=== PATIENT | female | born 1980 | race African-American/Black ===

== ENCOUNTER 2016-12-03 11:32 | Emergency (ER) | payer MEDICARE, OTHER ==
[~2016-12-03] VITALS: Ht 160 cm; Wt 114.1 kg
[2016-12-03 11:36] VITALS: Ht 160 cm; Wt 114.1 kg
[2016-12-03 13:16] LABS: ADD UMIC YES; URINE BILIRUBIN (Dip) NEGATIVE (NEGATIVE); URINE BLOOD (Dip) 2+ (NEGATIVE); URINE COLOR LT. YELLOW (YELLOW); URINE GLUCOSE (Dip) NEGATIVE (NEGATIVE); URINE KETONES (Dip) NEGATIVE (NEGATIVE); URINE LEUKOCYTE ESTERASE (Dip) 3+ (NEGATIVE); URINE NITRITE (Dip) NEGATIVE (NEGATIVE); URINE TOTAL PROTEIN (Dip) TRACE (NEGATIVE); URINE UROBILINOGEN (Dip) 0.2 E.U./dL (0.1-1.0)
[2016-12-03 13:23] LABS: POTASSIUM 4.6 mmol/L (3.5-5.1)
[2016-12-03 13:25] LABS: CREATININE 3.22 mg/dl (0.44-1.00)
[2016-12-03 13:26] LABS: CALCIUM 9.4 mg/dl (8.4-10.2); CHOL/HDL RATIO 3.6 RATIO; PHOSPHORUS 4.4 mg/dl (2.5-4.9)
[2016-12-03] MEDS ORDERED: HEPARIN (100 UNITS/ML) 5 ML SYG CATHETER ONE (13:30)
[2016-12-03 13:48] VITALS: BP 132/85; PULSE 77; RESP 18; TEMP 98.1
--- NOTE | 2016-12-03 13:49 | ERD ---
ER Documentation Chief Complaint Date/Time DATE: 12/03/16 TIME: 13:47 Chief Complaint here for lab work up, has port cath, lab unable to draw HPI This is a 36-year-old female presents to the ER for lab work. Patient has a port catheter was unable to get her lab work done at the lab. Patient is asymptomatic otherwise has a past medical history of MS, diabetes, renal failure. He denies any chest pain or shortness of breath ROS 12 point review of systems was done, all negative except per HPI. Medications Home Meds Reported Medications Benazepril Hcl* (Benazepril Hcl*) 20 Mg Tablet, 20 MG PO BID, #60 TAB 09/23/16 Citalopram Hydrobromide* (Celexa*) 10 Mg Tablet, 10 MG PO DAILY, #30 TAB 09/23/16 Furosemide* (Furosemide*) 80 Mg Tablet, 60 MG PO BID, #60 TAB 09/23/16 Ergocalciferol (Vitamin D2) (VITAMIN D2) 50,000 Unit Capsule, 70903 UNIT PO, CAP 09/23/16 Acetaminophen* (Acetaminophen*) 500 MG Extra Strength Tablet, 500 MG PO Q4H Y for PAIN AND OR ELEVATED TEMP, TAB 09/23/16 Trazodone Hcl* (Trazodone Hcl*) 50 Mg Tablet, 50 MG PO QHS, #30 TAB 09/23/16 Alprazolam* (Xanax*) 0.5 Mg Tab, 0.5 MG PO Q6 Y for ANXIETY, TAB 04/02/15 Calcitriol* (Rocaltrol*) 0.25 Mcg Capsule, 0.25 MCG PO DAILY, CAP 04/02/15 Citalopram Hydrobromide* (Celexa*) 20 Mg Tablet, 20 MG PO DAILY, TAB 04/02/15 Insulin Aspart* (Novolog Insulin Vial*) 100 U/Ml Vial, 10-15 SC SLIDING SCALE AC , VIAL 04/02/15 Insulin Glargine* (Lantus*) 100 Unit/Ml Soln, 30 UNIT SC DAILY 03/22/14 Atorvastatin (Lipitor) 20 Mg Tablet, 20 MG PO HS 03/26/12 Amlodipine Besylate* (Amlodipine Besylate*) 5 Mg Tablet, 5 MG PO BID 03/26/12 Allergies Allergies: Coded Allergies: peanut (Verified Allergy, Severe, 12/03/16) avocado (Verified Allergy, Unknown, 12/03/16) PMhx/Soc History of Surgery: Yes (CHOLECYSTECTOMY,AVF PLACEMENT LA,C SECTION X1) Anesthesia Reaction: No Hx Neurological Disorder: No Hx Respiratory Disorders: No Hx Cardiac Disorders: No Hx Psychiatric Problems: No Hx Miscellaneous Medical Probl: No Hx Alcohol Use: No Hx Substance Use: No Hx Tobacco Use: No Smoking Status: Never smoker Physical Exam Vitals Vital Signs Date Time Temp Pulse Resp B/P Pulse Ox O2 Delivery O2 Flow Rate FiO2 12/03/16 11:36 98.1 97 20 133/82 99 Physical Exam Const: [] Head: Atraumatic Eyes: Normal Conjunctiva Resp: Clear to auscultation bilaterally Cardio: Regular rate and rhythm, no murmurs Ext: Patient has a brace on her left leg and walks with a limp. Neur: Awake and alert Psych: Normal Mood and Affect Result Diagram: 12/03/16 1300 12/03/16 1300 Results 24 hrs Laboratory Tests Test 12/03/16 13:00 Anion Gap 22 Blood Urea Nitrogen 48mg/dl Calcium Level 9.4mg/dl Carbon Dioxide Level 20mmol/L Chloride Level 104mmol/L Cholesterol Level 114mg/dl Cholesterol/HDL Ratio 3.6RATIO Creatinine 3.22mg/dl Glucose Level 68mg/dl HDL Cholesterol 31mg/dl Hemoglobin 8.9g/dl LDL Cholesterol, Calculated 65mg/dl Parathyroid Hormone (Intact) pg/ml Phosphorus Level 4.4mg/dl Potassium Level 4.6mmol/L Sodium Level 141mmol/L Triglycerides Level 91mg/dl Urine Bilirubin NEGATIVE Urine Clarity CLOUDY Urine Color LT. YELLOW Urine Glucose NEGATIVE% Urine Hemoglobin 2+ Urine Ketones NEGATIVE Urine Leukocyte Esterase 3+ Urine Microscopic RBC Pending Urine Microscopic WBC Pending Urine Nitrite NEGATIVE Urine Specific [place] 1.015 Urine Total Protein TRACE Urine Urobilinogen 0.2 E.U./dL Urine pH 5.5 Current Medications Medications (Trade) Dose Ordered Sig/Raquel Route PRN Reason Start Time Stop Time Status Last Admin Dose Admin Heparin Sodium (Porcine) (Heparin Flush (10 Units/ml)) 30 unit ONCE ONCE CATHETER 12/03/16 13:00 12/03/16 13:14 DC Heparin Sodium (Porcine) (Heparin Flush (100 Units/ml)) 500 unit ONCE ONCE CATHETER 12/03/16 13:30 12/03/16 13:31 DC 12/03/16 13:25 Procedures/MDM This is a 36-year-old female presents to the ER for a lab draw. Labs were drawn here in the ER by our nurses. There was no complications. Patient is to follow-up with her primary care doctor within 1-2 days return to ER sooner if symptoms worsen. My medical decision making shared with the patient she understands and agrees with plan Departure Diagnosis: Primary Impression: Encounter for laboratory test Condition: Stable Patient Instructions: Chronic Kidney Disease Additional Instructions: Call your primary care doctor TOMORROW for an appointment during the next 1-2 days.See the doctor sooner or return here if your condition worsens before your appointment time. ALEC NYE Dec 03, 2016 13:49
[2016-12-03 13:51] LABS: BACTERIA,URINE MANY
== END 2016-12-03 13:49 | disposition home or self-care (01) ==
LOC: FTE 11:32
DX: Z00.00 Encounter for general adult medical examination without abnormal findings (principal); E11.9 Type 2 diabetes mellitus without complications; Z79.4 Long term (current) use of insulin; Z91.010 Allergy to peanuts
CPT/HCPCS: 80048; 80061; 81001; 81003; 83036; 83970; 84100; 84155; 85018; 99283; J1642

== ENCOUNTER → 2016-12-03 | Outpatient (CLI) | payer MEDICARE, OTHER ==
[~2016-12-03] MED LIST: ACET-141 PO; ALPR0.5T PO; AMLO-145 PO; ATOR20TA17 PO; BENA20TA48 PO; CALC0.255 PO; CITA10TA72 PO; CITA20TA11 PO; ERGO500037 PO; FURO80TA3 PO; LANT3I SC; NOV SC; TRAZ50TA18 PO
== END | disposition home or self-care (01) ==
LOC: LAB 10:54
PROVIDERS: ATTEND Internal Medicine Nephrology
DX: I12.9 Hypertensive chronic kidney disease with stage 1 through stage 4 chronic kidney disease, or unspecified chronic kidney disease (principal); N18.4 Chronic kidney disease, stage 4 (severe); R80.9 Proteinuria, unspecified; D63.1 Anemia in chronic kidney disease

== ENCOUNTER 2017-01-29 11:19 | Emergency (ER) | payer MEDICARE, OTHER ==
[~2017-01-29] VITALS: Wt 111.6 kg
[2017-01-29] MEDS ORDERED: ONDANSETRON 4 MG INJ IV STA (11:47)
[2017-01-29] MEDS ORDERED: FURO-110 PO (12:10)
[2017-01-29 13:13] LABS: ADD SCAN DIFF NO
[2017-01-29 13:17] LABS: BASOPHIL # 0.1 10^3/ul (0.0-0.1); BASOPHILS % 0.6 % (0.0-2.0); EOSINOPHILS # 0.6 10^3/ul (0.0-0.5); EOSINOPHILS % 6.6 % (0.0-7.0); HEMATOCRIT 25.1 % (37.0-47.0); HEMOGLOBIN 8.5 g/dl (12.0-16.0); LYMPHOCYTES # 2.8 10^3/ul (0.8-2.9); LYMPHOCYTES % 31.5 % (15.0-51.0); MEAN CORPUSCULAR HEMOGLOBIN 25.4 pg (29.0-33.0); MEAN CORPUSCULAR HGB CONC 33.9 g/dl (32.0-37.0); MEAN CORPUSCULAR VOLUME 74.9 fl (82.0-101.0); MEAN PLATELET VOLUME 9.4 fl (7.4-10.4); MONOCYTE # 0.8 10^3/ul (0.3-0.9); MONOCYTES % 9.1 % (0.0-11.0); NEUTROPHIL # 4.6 10^3/ul (1.6-7.5); PLATELET COUNT 340 10^3/UL (140-415); RED BLOOD COUNT 3.35 10^6/ul (4.20-5.40); RED CELL DISTRIBUTION WIDTH 14.2 % (11.5-14.5); WHITE BLOOD COUNT 8.9 10^3/ul (4.8-10.8)
--- NOTE | 2017-01-29 13:25 | RADRPT ---
PROCEDURE: XR Chest. CLINICAL INDICATION: Chest pain, abdominal pain TECHNIQUE: AP view of the chest was performed. COMPARISON: April 02, 2015 FINDINGS: The cardiomediastinal silhouette is within normal limits. There is a new, right Perma-Cath in place. The lungs are clear. No signs of pleural fluid or pneumothorax are seen. No acute infiltrate or fin dings of fluid overload. The osseous structures and soft tissues are unremarkable. IMPRESSION: No evidence for active cardiopulmonary disease. Right Perma-Cath. No acute infiltrate or findings of fluid overload. Overall, no interval change. RPTAT: QQ .Norma Ortez MD, MD Date Time Electronically viewed and signed by .Norma Ortez MD, MD on 01/29/2017 13:25 .F/
[2017-01-29 14:08] LABS: ADD UMIC YES; URINE BILIRUBIN (Dip) NEGATIVE (NEGATIVE); URINE BLOOD (Dip) 3+ (NEGATIVE); URINE COLOR LT. YELLOW (YELLOW); URINE GLUCOSE (Dip) NEGATIVE (NEGATIVE); URINE KETONES (Dip) NEGATIVE (NEGATIVE); URINE LEUKOCYTE ESTERASE (Dip) 3+ (NEGATIVE); URINE NITRITE (Dip) NEGATIVE (NEGATIVE); URINE TOTAL PROTEIN (Dip) 1+ (NEGATIVE); URINE UROBILINOGEN (Dip) 0.2 E.U./dL (0.1-1.0)
[2017-01-29 14:27] LABS: BACTERIA,URINE MANY; SQUAMOUS EPITHELIAL CELL,UR FEW
[2017-01-29 14:31] LABS: ALBUMIN 3.8 g/dl (3.3-4.9); CHLORIDE 103 mmol/L (97-110); POTASSIUM 5.3 mmol/L (3.5-5.1); SODIUM 138 mmol/L (135-144)
[2017-01-29 14:34] LABS: ALANINE AMINOTRANSFERASE 32 IU/L (13-69); ALBUMIN/GLOBULIN RATIO 1.31; ALKALINE PHOSPHATASE 100 IU/L (42-121); ANION GAP 17 (8-16); ASPARTATE AMINO TRANSFERASE 25 IU/L (15-46); BLOOD UREA NITROGEN 49 mg/dl (7-20); CARBON DIOXIDE 23 mmol/L (21-31); CREATININE 4.03 mg/dl (0.44-1.00); TOTAL PROTEIN 6.7 g/dl (6.1-8.1)
[2017-01-29 14:35] LABS: CALCIUM 8.7 mg/dl (8.4-10.2)
[2017-01-29 14:37] LABS: GLUCOSE 41 mg/dl (70-220)
[2017-01-29 14:43] LABS: B-TYPE NATRIURETIC PEPTIDE 286 PG/ML (0-125)
[2017-01-29 14:49] LABS: TROPONIN-I < 0.012 ng/ml (0.00-0.12)
[2017-01-29] MEDS ORDERED: FUROSEMIDE 40 MG INJ IV ONE (15:30)
[2017-01-29] MEDS ORDERED: CEFEPIME 1GM/50 ML (PMX) 50 ML IVPB ONE (15:30)
[2017-01-29] MEDS ORDERED: NA POLYST SULFON 15 GM/60 ML BTL PO ONE (15:30)
[2017-01-29] MEDS ORDERED: LEVO250T9 PO (16:01)
[2017-01-29 16:12] VITALS: BP 131/92; PULSE 104; RESP 22
--- NOTE | 2017-01-29 16:13 | ERD ---
ER Documentation Chief Complaint Date/Time DATE: 01/29/17 TIME: 16:03 Chief Complaint FEW WKS OF SOB WITH MILD ANASARCA PER CAREGIVER. INT COUGH AND CONGESTION HPI This 36-year-old female presents to the ER with feeling generally slightly weak and tired than usual. She had very mild shortness of breath. She herself to not intended come to the hospital when her home health nurse stopped by she thought that she looked a little more swollen than usual. Patient does say that she has increasing bilateral leg swelling. She has a history of renal insufficiency but is not on dialysis currently she has been about in the past. ROS All systems reviewed and are negative except as per history of present illness. Medications Home Meds Active Scripts Levofloxacin* (Levofloxacin*) 250 Mg Tablet, 250 MG PO DAILY, #4 TAB Prov:LUISSUZYHO DO 01/29/17 Reported Medications Furosemide* (Lasix*) 20 Mg Tablet, 60 MG PO BID, TAB 01/29/17 Benazepril Hcl* (Benazepril Hcl*) 20 Mg Tablet, 20 MG PO BID, #60 TAB 09/23/16 Citalopram Hydrobromide* (Celexa*) 10 Mg Tablet, 10 MG PO DAILY, #30 TAB 09/23/16 Ergocalciferol (Vitamin D2) (VITAMIN D2) 50,000 Unit Capsule, 50065 UNIT PO, CAP 09/23/16 Acetaminophen* (Acetaminophen*) 500 MG Extra Strength Tablet, 500 MG PO Q4H Y for PAIN AND OR ELEVATED TEMP, TAB 09/23/16 Trazodone Hcl* (Trazodone Hcl*) 50 Mg Tablet, 50 MG PO QHS, #30 TAB 09/23/16 Alprazolam* (Xanax*) 0.5 Mg Tab, 0.5 MG PO Q6 Y for ANXIETY, TAB 04/02/15 Calcitriol* (Rocaltrol*) 0.25 Mcg Capsule, 0.25 MCG PO DAILY, CAP 04/02/15 Citalopram Hydrobromide* (Celexa*) 20 Mg Tablet, 20 MG PO DAILY, TAB 04/02/15 Insulin Aspart* (Novolog Insulin Vial*) 100 U/Ml Vial, 10-15 SC SLIDING SCALE AC , VIAL 04/02/15 Insulin Glargine* (Lantus*) 100 Unit/Ml Soln, 30 UNIT SC DAILY 03/22/14 Atorvastatin (Lipitor) 20 Mg Tablet, 20 MG PO HS 03/26/12 Amlodipine Besylate* (Amlodipine Besylate*) 5 Mg Tablet, 5 MG PO BID 03/26/12 Discontinued Reported Medications Furosemide* (Furosemide*) 80 Mg Tablet, 60 MG PO BID, #60 TAB 09/23/16 Allergies Allergies: Coded Allergies: peanut (Verified Allergy, Severe, 01/29/17) avocado (Verified Allergy, Unknown, 01/29/17) PMhx/Soc History of Surgery: Yes (CHOLECYSTECTOMY,AVF PLACEMENT LA,C SECTION X1) Anesthesia Reaction: No Hx Neurological Disorder: No Hx Respiratory Disorders: No Hx Cardiac Disorders: No Hx Psychiatric Problems: No Hx Miscellaneous Medical Probl: Yes (DM, MS) Hx Alcohol Use: No Hx Substance Use: No Hx Tobacco Use: No Smoking Status: Never smoker Physical Exam Vitals Vital Signs Date Time Temp Pulse Resp B/P Pulse Ox O2 Delivery O2 Flow Rate FiO2 01/29/17 13:52 93 27 121/86 100 Room Air 01/29/17 11:24 99.3 100 22 125/62 97 Physical Exam Const: [] No distress Head: Atraumatic Eyes: Normal Conjunctiva ENT: Normal External Ears, Nose and Mouth. Neck: Full range of motion..~ No meningismus. Resp: Clear to auscultation bilaterally Cardio: Regular rate and rhythm, no murmurs Abd: Soft, non tender, non distended. Normal bowel sounds Skin: No petechiae or rashes Back: No midline or flank tenderness Ext: No cyanosis, bilateral 2+ pitting edema to the lower extremities. Neur: Awake and alert and oriented 3, no focal deficits Psych: Normal Mood and Affect Result Diagram: 01/29/17 1245 01/29/17 1245 Results 24 hrs Laboratory Tests Test 01/29/17 12:45 01/29/17 12:47 01/29/17 13:46 01/29/17 13:47 Alanine Aminotransferase (ALT/SGPT) 32IU/L Albumin 3.8g/dl Albumin/Globulin Ratio 1.31 Alkaline Phosphatase 100IU/L Anion Gap 17 Aspartate Amino Transf (AST/SGOT) 25IU/L B-Type Natriuretic Peptide 286PG/ML Basophils # 0.110^3/ul Basophils % 0.6% Blood Urea Nitrogen 49mg/dl Calcium Level 8.7mg/dl Carbon Dioxide Level 23mmol/L Chloride Level 103mmol/L Creatinine 4.03mg/dl Direct Bilirubin 0.00mg/dl Eosinophils # 0.610^3/ul Eosinophils % 6.6% Globulin 2.90g/dl Glucose Level 41mg/dl Hematocrit 25.1% Hemoglobin 8.5g/dl Indirect Bilirubin 0.0mg/dl Lactic Acid Level 0.7mmol/L Lipase 47U/L Lymphocytes # 2.810^3/ul Lymphocytes % 31.5% Mean Corpuscular Hemoglobin 25.4pg Mean Corpuscular Hemoglobin Concent 33.9g/dl Mean Corpuscular Volume 74.9fl Mean Platelet Volume 9.4fl Monocytes # 0.810^3/ul Monocytes % 9.1% Neutrophils # 4.610^3/ul Neutrophils % 52.0% Nucleated Red Blood Cells # 0.010^3/ul Nucleated Red Blood Cells % 0.0/100WBC Platelet Count 76217^3/UL Potassium Level 5.3mmol/L Red Blood Count 3.3510^6/ul Red Cell Distribution Width 14.2% Sodium Level 138mmol/L Total Bilirubin 0.0mg/dl Total Protein 6.7g/dl Troponin I < 0.012ng/ml White Blood Count 8.910^3/ul Bedside Glucose 50mg/dL 91mg/dL Urine Bacteria MANY Urine Bilirubin NEGATIVE Urine Clarity CLOUDY Urine Color LT. YELLOW Urine Glucose NEGATIVE% Urine Hemoglobin 3+ Urine Ketones NEGATIVE Urine Leukocyte Esterase 3+ Urine Microscopic RBC 2-5/HPF Urine Microscopic WBC >50/HPF Urine Nitrite NEGATIVE Urine Specific [place] 1.015 Urine Squamous Epithelial Cells FEW Urine Total Protein 1+ Urine Urobilinogen 0.2 E.U./dL Urine pH 5.5 Current Medications Medications (Trade) Dose Ordered Sig/Raquel Route PRN Reason Start Time Stop Time Status Last Admin Dose Admin Ondansetron HCl 4 mg 4 mg ONCE STAT IV 01/29/17 11:47 01/29/17 11:49 DC 01/29/17 13:13 Cefepime HCl (Maxipime 1gm/50 ml (Pmx)) 50 ml @ 100 mls/hr ONCE ONCE IVPB 01/29/17 15:30 01/29/17 15:59 DC 01/29/17 15:29 Furosemide (Lasix) 40 mg ONCE ONCE IV 01/29/17 15:30 01/29/17 15:31 DC 01/29/17 15:28 Sodium Polystyrene Sulfonate (Kayexalate) 30 gm ONCE ONCE PO 01/29/17 15:30 01/29/17 15:31 DC 01/29/17 15:28 Procedures/MDM Urinary tract infection and hypoglycemia. She did take her normal insulin this morning but did not eat as much as usual. She was given orange juice in the emergency room and her trigger recheck was 91. She can continue to eat food. She also had mild hyperkalemia was treated with Lasix and Kayexalate in the ER. The Lasix will also help with her increasing fluid which is likely secondary to mild acute renal impairment. Her baseline creatinine is usually between 3 and 4 according to our EMR. She has had just received to iron infusions. She has no signs of fluid overload in her lungs. Patient was offered admission but she is afraid of hospitals were preferred to go home and be treated. The primary care doctor. I have printed her labs for her and said that she needs to have her potassium and kidney function rechecked. Chest x-ray interpretation: I see no acute process. No widened mediastinum and pneumothorax no pulmonary edema, no fractures EKG interpretation: Normal sinus rhythm rate of 92, normal axis, no ST or T- wave changes concerning for acute ischemia. lunchroom monitor interpretation: Normal sinus rhythm without arrhythmia Departure Diagnosis: Primary Impression: Urinary tract infection Additional Impressions: Hypoglycemia due to insulin Acute renal impairment Hyperkalemia Microcytic anemia Condition: Stable Patient Instructions: Hypoglycemia (Low Blood Sugar), Understanding Urinary Tract Infections (UTIs), Peripheral Edema, Bilateral Referrals: LEVAR BROWN MD (PCP) Additional Instructions: Call your primary care doctor TOMORROW for an appointment during the next 2-3 days.See the doctor sooner or return here if your condition worsens before your appointment time. HO SMITH DO Jan 29, 2017 16:13
== END 2017-01-29 16:15 | disposition home or self-care (01) ==
LOC: E/R 11:19
DX: N39.0 Urinary tract infection, site not specified (principal); E11.65 Type 2 diabetes mellitus with hyperglycemia; N28.9 Disorder of kidney and ureter, unspecified; E87.5 Hyperkalemia; D50.9 Iron deficiency anemia, unspecified; Z91.010 Allergy to peanuts; Z79.4 Long term (current) use of insulin
CPT/HCPCS: 36415; 71010; 80053; 81001; 82962; 83605; 83690; 83880; 84484; 85025; 93005; 96374; 96375; 99285; J0692; J1940; J2405; 81003

== ENCOUNTER 2018-02-06 19:56 | Emergency (ER) | END 2018-02-07 02:25 | disposition home or self-care (01) ==

== ENCOUNTER 2018-03-08 11:15 | Emergency (ER) | END 2018-03-08 18:57 | disposition home or self-care (01) ==

== ENCOUNTER 2018-09-24 17:37 | Inpatient (IN) | END 2018-09-25 16:25 | disposition home or self-care (01) | DRG 392 ==

== ENCOUNTER 2018-09-29 19:34 | Inpatient (IN) | END 2018-10-04 23:55 | disposition home or self-care (01) | DRG 392 ==